=== PATIENT | female | born 1980 | race Two or more races ===

== ENCOUNTER 2016-12-11 11:15 | Emergency (ER) | payer OTHER ==
[~2016-12-11] VITALS: Ht 165.1 cm; Wt 111.5 kg
[2016-12-11 12:32] LABS: PATH.CAST-FLAG NOT PRESENT; SPERM-FLAG NOT PRESENT; SRC-FLAG NOT PRESENT; XTAL-FLAG NOT PRESENT; YLC-FLAG NOT PRESENT
[2016-12-11 13:35] LABS: BLOOD UREA NITROGEN 11 mg/dL (7-18)
[2016-12-11 14:23] VITALS: BP 132/87
[2016-12-13] MEDS ORDERED: MORPHINE SULFATE 4 MG/ML, 1ML ONE (14:28)
[2016-12-13] MEDS ORDERED: KETOROLAC 30 MG/1 ML ONE (14:28)
[2016-12-13] MEDS ORDERED: TAMSULOSIN 0.4 MG CAP.ER.24H ONE (14:28)
[2016-12-13] MEDS ORDERED: ONDANSETRON 2MG/ML, 2ML ONE (14:29)
== END 2016-12-11 14:25 | disposition home or self-care (01) ==
LOC: ED 12:00
DX: E11.9 Type 2 diabetes mellitus without complications (principal); N13.2 Hydronephrosis with renal and ureteral calculous obstruction; N31.9 Neuromuscular dysfunction of bladder, unspecified
CPT/HCPCS: 36415; 74176; 80048; 81001; 82040; 82962; 85025; 87077; 87086; 87186

== ENCOUNTER 2016-12-13 12:55 | Emergency (ER) | payer OTHER ==
[2016-12-13] MEDS ORDERED: CIPROFLOXACIN/PMX 400MG/200ML 200 ML ONE (16:47)
[2016-12-13] MEDS ORDERED: PHENAZOPYRIDINE 200 MG TABLET ONE (16:47)
[2016-12-16 10:13] LABS: HCG UR OBC PASS
[2016-12-16 12:06] LABS: ASPARTATE AMINO TRANSFERASE 29 U/L (15-37); BLOOD UREA NITROGEN 12 mg/dL (7-18)
== END 2016-12-13 18:05 | disposition home or self-care (01) ==
LOC: ED 12:55
DX: N30.00 Acute cystitis without hematuria (principal); K80.20 Calculus of gallbladder without cholecystitis without obstruction
CPT/HCPCS: 36415; 74000; 76770; 80053; 81001; 81025; 85025; 85610; 85730; 87086; 99285

== ENCOUNTER 2019-12-30 15:02 | Inpatient (IN) | payer OTHER ==
[~2019-12-30] VITALS: Ht 162.6 cm; Wt 112.4 kg
[2019-12-30] MEDS ORDERED: KETOROLAC 30 MG/1 ML ONE (15:42)
--- NOTE | 2019-12-30 15:42 | NUR ---
DELAYED ENTRY DUE TO PATIENT CARE. THIS IS A 39 YO FEMALE COMING IN FOR WORSENING COUGH, UNCONTROLLED FEVERS AT HOME WITH TYLENOL, AND INCREASED SOB. SX STARTED TUESDAY, WAS TESTED FOR COVID AT [facility] THIS WEEK, RESULTS STILL PENDING. PATIENT ON 85% RA IN TRIAGE, PLACEDO N 4L NC HERE AT 94%. RESPIRATIONS EVEN BUT LABORED. LUNG SOUNDS CLEAR BUT DIMINISHED THROUGHOUT. PATIENT IS TACHYCARDIC AT 115-125 IN SINUS. ALL MONITORING IN PLACE, CALL LIGHT IN REACH. LABS DRAWN, ERP IN ROOM AT THIS TIME FOR EVAL AND COVID SWAB.
[2019-12-30 15:49] LABS: BASOPHILS % (AUTO) 0 % (0-1); EOSINOPHILS # (AUTO) 0.01 x10^3/uL (0-0.4); EOSINOPHILS % (AUTO) 0 % (1-7); LYMPHOCYTES % (AUTO) 13 % (22-44); MD NO; MEAN CORPUSCULAR HEMOGLOBIN 30.7 pg (27.0-34.8); MEAN CORPUSCULAR VOLUME 90.1 fL (80-100); MONOCYTES % (AUTO) 6 % (2-9); NEUTROPHILS # (AUTO) 5.41 x10^3/uL (1.8-6.8); NEUTROPHILS % (AUTO) 81 % (42-75); PLATELET COUNT 184 x10^3/uL (130-400); RED BLOOD COUNT 4.69 x10^6/uL (3.82-5.3); RED CELL DISTRIBUTION WIDTH 12.6 % (9.6-15.2)
--- NOTE | 2019-12-30 15:50 | NUR ---
ICE PACKS APPLIED TO GROIN AND BEHIND NECK TO AID IN COOLING MEASURES
[2019-12-30 15:54] LABS: ANION GAP 10 mmol/L (5-15); CALCIUM 8.3 mg/dL (8.5-10.1); CHLORIDE 101 mmol/L (98-107)
--- NOTE | 2019-12-30 15:55 | NUR ---
PIV PLACED, IVF RUNNING PER VERBAL ORDERS. MEDICATED PER EMAR.
[2019-12-30] MEDS ORDERED: KETOROLAC 30 MG/1 ML IVPush ONE (16:00)
--- NOTE | 2019-12-30 16:20 | NUR ---
TEMP 103.1, ERP NOTIFIED
[2019-12-30] MEDS ORDERED: ACETAMINOPHEN 325 MG TABLET ONE (16:48)
--- NOTE | 2019-12-30 16:52 | NUR ---
PATIENT MEDICATED PER EMAR, TOLERATED WELL
[2019-12-30] MEDS ORDERED: ACETAMINOPHEN 325 MG TABLET PO ONE (17:00)
[2019-12-30] MEDS ORDERED: SODIUM CHLORIDE 0.9% 1,000ML IVBOLUS ONE (17:30)
--- NOTE | 2019-12-30 17:49 | NUR ---
PATIENT RESTING ON GURNEY, RESPIRATIONS EVEN AND UNLABORED AT THIS TIME, RR 26. VSS, NADN
--- NOTE | 2019-12-30 18:11 | NUR ---
REPORT GIVEN TO [facility]. PLAN OF CARE DISCUSSED
[2019-12-30] MEDS ORDERED: hydrALAzine 20 MG/ML, 1ML IVPush PRN (19:00)
[2019-12-30] MEDS ORDERED: ONDANSETRON 2MG/ML, 2ML IVPush PRN (19:00)
[2019-12-30] MEDS ORDERED: ALBUTEROL HFA 90 MCG/SPRAY INH PRN (19:00)
[2019-12-30] MEDS: ACETAMINOPHEN 325 MG TABLET PO PRN (20:57)
[2019-12-30] MEDS: SODIUM CHLORIDE 0.9% 1,000 ML IV SCH (20:58)
[2019-12-30 23:42] LABS: MICROSCOPIC INDICATED
[2019-12-31 00:12] VITALS: BP 100/63
[2019-12-31 05:11] LABS: BASOPHILS # (AUTO) 0.01 x10^3/uL (0-0.1); BASOPHILS % (AUTO) 0 % (0-1); EOSINOPHILS # (AUTO) 0.01 x10^3/uL (0-0.4); EOSINOPHILS % (AUTO) 0 % (1-7); LYMPHOCYTES # (AUTO) 0.82 x10^3/uL (1-3.4); LYMPHOCYTES % (AUTO) 13 % (22-44); MD NO; MEAN CORPUSCULAR HEMOGLOBIN 30.6 pg (27.0-34.8); MEAN CORPUSCULAR HGB CONC 33.8 g/dL (32.4-35.8); MEAN CORPUSCULAR VOLUME 90.6 fL (80-100); MEAN PLATELET VOLUME 8.6 fL (7.4-10.4); MONOCYTES # (AUTO) 0.44 x10^3/uL (0.2-0.8); MONOCYTES % (AUTO) 7 % (2-9); NEUTROPHILS # (AUTO) 5.27 x10^3/uL (1.8-6.8); NEUTROPHILS % (AUTO) 81 % (42-75); PLATELET COUNT 167 x10^3/uL (130-400)
[2019-12-31 05:18] LABS: ANION GAP 10 mmol/L (5-15); CALCIUM 7.6 mg/dL (8.5-10.1); CHLORIDE 104 mmol/L (98-107); CREATININE 0.67 mg/dL (0.55-1.02)
[2019-12-31 05:42] VITALS: BP 110/65
[2019-12-31] MEDS: ACETAMINOPHEN 325 MG TABLET PO PRN ×2 (05:44→12:40)
[2019-12-31] MEDS: SODIUM CHLORIDE 0.9% 1,000 ML IV SCH ×2 (05:44→22:00)
[2019-12-31 07:47] VITALS: BP 100/65
[2019-12-31] MEDS ORDERED: MEDROL 4MG DOSEPAK PO SCH (08:00)
[2019-12-31] MEDS ORDERED: POTASSIUM CHLORIDE 20 MEQ TAB.ER.PRT PO ONE (08:00)
[2019-12-31] MEDS: HEPARIN 5,000 UNITS/ML, 1ML SQ SCH ×2 (08:10→15:16)
[2019-12-31] MEDS ORDERED: BISACODYL 10 MG SUPP PR PRN (09:00)
[2019-12-31] MEDS: SENNA/DOCUSATE TABLET PO SCH (09:00)
[2019-12-31 12:17] VITALS: BP 123/80
[2019-12-31] MEDS ORDERED: ACETAMINOPHEN 650 MG/20.3 ML UDC ONE (12:33)
[2019-12-31] MEDS ORDERED: BENZONATATE 100 MG CAPSULE ONE (12:34)
[2019-12-31] MEDS: BENZONATATE 100 MG CAPSULE PO SCH ×3 (12:40→20:37)
[2019-12-31 20:20] VITALS: BP 128/89
[2020-01-01 01:01] VITALS: BP 126/71
[2020-01-01] MEDS: ACETAMINOPHEN 325 MG TABLET PO PRN (01:38)
[2020-01-01] MEDS ORDERED: GUAIFENESIN/COD200MG-20MG/10ML LIQUID ONE (02:07)
[2020-01-01] MEDS ORDERED: GUAIFENESIN/COD200MG-20MG/10ML LIQUID PO ONE (02:30)
[2020-01-01 06:02] LABS: CALCIUM 8.1 mg/dL (8.5-10.1); CHLORIDE 110 mmol/L (98-107)
[2020-01-01 06:06] LABS: ANION GAP 6 mmol/L (5-15); CREATININE 0.68 mg/dL (0.55-1.02)
[2020-01-01 06:56] VITALS: BP 112/77
[2020-01-01] MEDS: HEPARIN 5,000 UNITS/ML, 1ML SQ SCH ×3 (08:00→17:02)
[2020-01-01] MEDS: SENNA/DOCUSATE TABLET PO SCH (09:00)
[2020-01-01] MEDS: CALCIUM/VITAMIN D3 250-125 TABLET PO SCH ×2 (09:00→21:15)
[2020-01-01] MEDS: BENZONATATE 100 MG CAPSULE PO SCH ×3 (09:00→21:15)
[2020-01-01 13:15] VITALS: BP 129/86
[2020-01-01 16:25] LABS: ALBUMIN 2.6 g/dL (3.4-5.0); ANION GAP 8 mmol/L (5-15); CALCIUM 8.2 mg/dL (8.5-10.1); CHLORIDE 109 mmol/L (98-107)
[2020-01-01 16:28] LABS: ALANINE AMINOTRANSFERASE 44 U/L (12-78); ALKALINE PHOSPHATASE 53 U/L (45-117); BILIRUBIN,TOTAL 0.6 mg/dL (0.2-1.0); CREATININE 0.61 mg/dL (0.55-1.02); TOTAL PROTEIN 7.5 g/dL (6.4-8.2)
[2020-01-01] MEDS ORDERED: REMDESIVIR 200 MG in SODIUM CHLORIDE 0.9% 250 ML IVPB ONE (17:00)
[2020-01-01] MEDS: SODIUM CHLORIDE 0.9% 1,000 ML IV SCH (17:04)
[2020-01-01 19:51] VITALS: BP 128/80
[2020-01-02 00:11] VITALS: BP 114/77
[2020-01-02] MEDS: HEPARIN 5,000 UNITS/ML, 1ML SQ SCH ×3 (01:16→18:18)
[2020-01-02] MEDS: SENNA/DOCUSATE TABLET PO SCH (09:19)
[2020-01-02] MEDS: CALCIUM/VITAMIN D3 250-125 TABLET PO SCH ×2 (09:19→20:27)
[2020-01-02] MEDS: BENZONATATE 100 MG CAPSULE PO SCH ×3 (09:19→20:28)
[2020-01-02 09:27] VITALS: BP 116/81
[2020-01-02] MEDS ORDERED: TOCILIZUMAB 800 MG in SODIUM CHLORIDE 0.9% 100 ML IVPB SCH (09:30)
[2020-01-02 12:35] VITALS: BP 125/76
[2020-01-02] MEDS ORDERED: OMNIPAQUE 350 MG/ML, 75ML BOTTLE ONE (15:54)
[2020-01-02] MEDS: REMDESIVIR 100 MG in SODIUM CHLORIDE 0.9% 250 ML IVPB SCH (18:17)
[2020-01-02] MEDS: SODIUM CHLORIDE 0.9% 1,000 ML IV SCH (18:17)
[2020-01-02 18:32] VITALS: BP 116/77
[2020-01-03 02:01] VITALS: BP 118/76
[2020-01-03] MEDS: HEPARIN 5,000 UNITS/ML, 1ML SQ SCH ×3 (02:02→16:55)
[2020-01-03 06:35] LABS: TROPONIN I < 0.015 ng/mL (0.000-0.045)
[2020-01-03 06:36] LABS: ALANINE AMINOTRANSFERASE 59 U/L (12-78); ALBUMIN 2.4 g/dL (3.4-5.0); ANION GAP 7 mmol/L (5-15); CALCIUM 8.2 mg/dL (8.5-10.1); CHLORIDE 111 mmol/L (98-107); CREATININE 0.59 mg/dL (0.55-1.02)
[2020-01-03 06:39] LABS: ALKALINE PHOSPHATASE 43 U/L (45-117); BILIRUBIN,TOTAL 0.3 mg/dL (0.2-1.0); TOTAL PROTEIN 6.5 g/dL (6.4-8.2)
[2020-01-03 08:10] VITALS: BP 109/71
[2020-01-03] MEDS: CALCIUM/VITAMIN D3 250-125 TABLET PO SCH ×2 (08:40→20:21)
[2020-01-03] MEDS: BENZONATATE 100 MG CAPSULE PO SCH ×3 (08:40→20:21)
[2020-01-03] MEDS: SODIUM CHLORIDE 0.9% 1,000 ML IV SCH (08:44)
[2020-01-03] MEDS: SENNA/DOCUSATE TABLET PO SCH (08:45)
[2020-01-03] MEDS ORDERED: TOCILIZUMAB 800 MG in SODIUM CHLORIDE 0.9% 60 ML IVPB SCH (10:00)
[2020-01-03 12:04] VITALS: BP 134/86
[2020-01-03] MEDS: REMDESIVIR 100 MG in SODIUM CHLORIDE 0.9% 250 ML IVPB SCH (18:19)
[2020-01-03 20:19] VITALS: BP 123/83
[2020-01-04 00:53] VITALS: BP 105/74
[2020-01-04] MEDS: SODIUM CHLORIDE 0.9% 1,000 ML IV SCH ×2 (01:20→17:45)
[2020-01-04] MEDS: HEPARIN 5,000 UNITS/ML, 1ML SQ SCH ×3 (01:20→17:45)
[2020-01-04 06:00] LABS: ALANINE AMINOTRANSFERASE 98 U/L (12-78); ALBUMIN 2.5 g/dL (3.4-5.0); ANION GAP 10 mmol/L (5-15); CALCIUM 8.3 mg/dL (8.5-10.1); CHLORIDE 107 mmol/L (98-107); CREATININE 0.55 mg/dL (0.55-1.02)
[2020-01-04 06:02] LABS: ALANINE AMINOTRANSFERASE 98 U/L (12-78)
[2020-01-04 06:03] LABS: ALKALINE PHOSPHATASE 42 U/L (45-117); BILIRUBIN,TOTAL 0.3 mg/dL (0.2-1.0); TOTAL PROTEIN 6.6 g/dL (6.4-8.2)
[2020-01-04 06:10] LABS: PLATELET COUNT 243 x10^3/uL (130-400)
[2020-01-04 08:16] VITALS: BP 105/70
[2020-01-04] MEDS: SENNA/DOCUSATE TABLET PO SCH (08:33)
[2020-01-04] MEDS: CALCIUM/VITAMIN D3 250-125 TABLET PO SCH ×2 (08:33→21:46)
[2020-01-04] MEDS: BENZONATATE 100 MG CAPSULE PO SCH ×3 (08:33→21:46)
[2020-01-04 12:19] VITALS: BP 116/78
[2020-01-04] MEDS: REMDESIVIR 100 MG in SODIUM CHLORIDE 0.9% 250 ML IVPB SCH (17:45)
[2020-01-04 19:16] VITALS: BP 109/76
[2020-01-05 02:01] VITALS: BP 100/69
[2020-01-05] MEDS: HEPARIN 5,000 UNITS/ML, 1ML SQ SCH ×3 (02:05→17:41)
[2020-01-05 06:25] LABS: BASOPHILS # (AUTO) 0.02 x10^3/uL (0-0.1); BASOPHILS % (AUTO) 1 % (0-1); EOSINOPHILS # (AUTO) 0.08 x10^3/uL (0-0.4); EOSINOPHILS % (AUTO) 2 % (1-7); LYMPHOCYTES # (AUTO) 1.77 x10^3/uL (1-3.4); LYMPHOCYTES % (AUTO) 42 % (22-44); MD NO; MEAN CORPUSCULAR HEMOGLOBIN 30.5 pg (27.0-34.8); MEAN CORPUSCULAR HGB CONC 32.7 g/dL (32.4-35.8); MEAN CORPUSCULAR VOLUME 93.4 fL (80-100); MEAN PLATELET VOLUME 8.2 fL (7.4-10.4); MONOCYTES # (AUTO) 0.49 x10^3/uL (0.2-0.8); MONOCYTES % (AUTO) 12 % (2-9); NEUTROPHILS # (AUTO) 1.85 x10^3/uL (1.8-6.8); NEUTROPHILS % (AUTO) 44 % (42-75); PLATELET COUNT 247 x10^3/uL (130-400); RED BLOOD COUNT 4.03 x10^6/uL (3.82-5.3); RED CELL DISTRIBUTION WIDTH 13.1 % (9.6-15.2)
[2020-01-05 06:33] LABS: D-DIMER 1.02 ug/mlFEU (0.00-0.52); INTERNATIONAL NORMALIZED RATIO 1.02 (0.93-1.1); PROTHROMBIN TIME 10.8 Seconds (9.6-11.5)
[2020-01-05 06:38] LABS: ALBUMIN 2.6 g/dL (3.4-5.0); ANION GAP 5 mmol/L (5-15); CALCIUM 8.6 mg/dL (8.5-10.1); CHLORIDE 105 mmol/L (98-107)
[2020-01-05 06:44] LABS: ALANINE AMINOTRANSFERASE 128 U/L (12-78); ALKALINE PHOSPHATASE 44 U/L (45-117); BILIRUBIN,TOTAL 0.4 mg/dL (0.2-1.0); CREATININE 0.68 mg/dL (0.55-1.02); TOTAL PROTEIN 6.7 g/dL (6.4-8.2); TROPONIN I < 0.015 ng/mL (0.000-0.045)
[2020-01-05 07:03] VITALS: BP 91/56
[2020-01-05] MEDS: CALCIUM/VITAMIN D3 250-125 TABLET PO SCH ×2 (09:24→21:02)
[2020-01-05] MEDS: BENZONATATE 100 MG CAPSULE PO SCH ×3 (09:24→21:02)
[2020-01-05] MEDS: SENNA/DOCUSATE TABLET PO SCH (09:24)
[2020-01-05] MEDS: SODIUM CHLORIDE 0.9% 1,000 ML IV SCH (11:11)
[2020-01-05 12:45] VITALS: BP 101/71
[2020-01-05] MEDS: REMDESIVIR 100 MG in SODIUM CHLORIDE 0.9% 250 ML IVPB SCH (17:38)
[2020-01-05 19:05] VITALS: BP 119/82
[2020-01-06 01:57] VITALS: BP 106/69
[2020-01-06] MEDS: HEPARIN 5,000 UNITS/ML, 1ML SQ SCH ×2 (02:00→08:18)
[2020-01-06 06:33] LABS: ALBUMIN 2.7 g/dL (3.4-5.0); ANION GAP 6 mmol/L (5-15); CALCIUM 8.4 mg/dL (8.5-10.1); CHLORIDE 107 mmol/L (98-107)
[2020-01-06 06:36] LABS: ALANINE AMINOTRANSFERASE 125 U/L (12-78); ALKALINE PHOSPHATASE 61 U/L (45-117); BILIRUBIN,TOTAL 0.2 mg/dL (0.2-1.0); CREATININE 0.69 mg/dL (0.55-1.02); TOTAL PROTEIN 6.5 g/dL (6.4-8.2)
[2020-01-06 07:54] VITALS: BP 139/80
[2020-01-06] MEDS: BENZONATATE 100 MG CAPSULE PO SCH (08:18)
[2020-01-06] MEDS: CALCIUM/VITAMIN D3 250-125 TABLET PO SCH (08:18)
[2020-01-06] MEDS: SENNA/DOCUSATE TABLET PO SCH (08:20)
[2020-01-06] MEDS ORDERED: DEXAMETHASONE 4 MG TABLET PO SCH (09:30)
[2020-01-06] MEDS ORDERED: POTASSIUM CHLORIDE 20 MEQ TAB.ER.PRT PO ONE (09:30)
[2020-01-06] MEDS ORDERED: ZINC50TA10 PO (14:25)
[2020-01-06] MEDS ORDERED: MELA1TAB PO (14:25)
[2020-01-06] MEDS ORDERED: CHOL200040 PO-COUM (14:25)
[2020-01-06] MEDS ORDERED: ALBU18HF INH (14:25)
[2020-01-06] MEDS ORDERED: DEXA6TAB6 PO (14:25)
[2020-01-06] MEDS ORDERED: ASCO-219 PO (14:25)
[2020-01-06 15:36] VITALS: BP 128/75
== END 2020-01-06 16:18 | disposition home or self-care (01) | DRG 871 ==
LOC: ED 17:07 → EDIP 17:14 → 4NW 19:02
PROVIDERS: ADMIT Internal Medicine; ATTEND Internal Medicine
DX: A41.89 Other specified sepsis (principal); J12.89 Other viral pneumonia; U07.1 COVID-19; J96.01 Acute respiratory failure with hypoxia; Z68.41 Body mass index [BMI] 40.0-44.9, adult; E83.51 Hypocalcemia; E66.01 Morbid (severe) obesity due to excess calories; G47.00 Insomnia, unspecified; E87.6 Hypokalemia; K59.00 Constipation, unspecified; R16.1 Splenomegaly, not elsewhere classified; R74.0 Nonspecific elevation of levels of transaminase and lactic acid dehydrogenase [LDH]; Z79.899 Other long term (current) drug therapy
CPT/HCPCS: 36415; 36600; 71045; 71260; 80048; 80053; 81001; 82330; 82728; 82803; 83036; 83605; 83615; 83735; 83880; 84145; 84450; 84460; 84484; 84703; 85014; 85018; 85025; 85049; 85379; 85610; 86140; 86713; 86738; 87040; 87086; 93005; 99285; G0378; J1644; J1885; J3262; J7509; Q9967; J7030; J7050; U0001-CS